=== PATIENT | female | born 1985 | race Caucasian/White ===

== ENCOUNTER 2019-01-14 10:11 | Emergency (ER) | payer OTHER ==
[~2019-01-14] VITALS: Wt 61.2 kg
[~2019-01-14 10:11] MED LIST: BENADRYL25 MG PO; FLUVOXAMINE100 MG PO; GABAPENTIN100 MG PO; KLONOPIN1 M1 PO; LUVOX50 MG PO; PREDNICOT20 MG PO; RISPERDAL2 MG PO; SEROQUEL200 MG PO; TAGAMET400 MG PO; ULTRAM50 MG PO; WELLBUTRIN75 MG PO; ZOFRAN ODT4 MG SL; ZOFRAN4 MG PO
[2019-01-14] MEDS ORDERED: PREDNISONE20 M1 PO (11:40)
== END 2019-01-14 11:50 | disposition home or self-care (01) ==
LOC: ED 10:11
DX: L27.0 Generalized skin eruption due to drugs and medicaments taken internally (principal); T43.215A Adverse effect of selective serotonin and norepinephrine reuptake inhibitors, initial encounter; Z88.0 Allergy status to penicillin; Z88.6 Allergy status to analgesic agent; Z88.8 Allergy status to other drugs, medicaments and biological substances; Z88.1 Allergy status to other antibiotic agents; Z88.5 Allergy status to narcotic agent; Z91.048 Other nonmedicinal substance allergy status; Z79.899 Other long term (current) drug therapy; Y92.89 Other specified places as the place of occurrence of the external cause